=== PATIENT | female | born 1985 | race Hispanic/Latino ===

== ENCOUNTER 2021-01-03 19:12 | Emergency (ER) | payer SELFPAY ==
[2021-01-03] MEDS ORDERED: HYDROCODONE/ACETAMINOPHEN 10/325 MG TAB ONE (19:34)
[2021-01-03] MEDS ORDERED: TETANUS/DIPHTHERIA TOXOID [ADULT] 0.5 ML VIAL IM ONE (19:35)
[2021-01-03] MEDS ORDERED: CEPHALEXIN 500 MG CAPSULE ONE (20:28)
== END 2021-01-03 20:47 | disposition home or self-care (01) ==
LOC: EDH 19:12
DX: S90.211A Contusion of right great toe with damage to nail, initial encounter (principal); S91.201A Unspecified open wound of right great toe with damage to nail, initial encounter; B35.1 Tinea unguium; E11.9 Type 2 diabetes mellitus without complications; W23.0XXA Caught, crushed, jammed, or pinched between moving objects, initial encounter; Y93.89 Activity, other specified; Y92.89 Other specified places as the place of occurrence of the external cause; Y99.8 Other external cause status
CPT/HCPCS: 11730; 73660; 90471; 90714

== ENCOUNTER 2021-02-26 22:45 | Inpatient (IN) | payer OTHER, SELFPAY ==
[~2021-02-26] VITALS: Ht 162.6 cm; Wt 78.5 kg
[2021-02-26] MEDS ORDERED: KETOROLAC 30MG VIAL (30MG/ML) ONE (23:58)
[2021-02-26] MEDS ORDERED: AZITHROMYCIN 250 MG TABLET PO ONE (23:58)
[2021-02-27] VITALS (12 sets, daily range): BP systolic 116–143; BP diastolic 60–95
[2021-02-27] MEDS ORDERED: 0.9%NACL 1000ML 1,000 ML IV ONE (00:18)
[2021-02-27 00:40] LABS: ABG OXYGEN SATURATION 66.6 % (95.0-99.0); HCO3,VENOUS BLOOD GAS 19.6 (21.0-28.0); PCO2,VENOUS BLOOD GAS 35 (32-45); PH,VENOUS BLOOD GAS 7.363 (7.350-7.450)
[2021-02-27 00:48] LABS: APPEARANCE,URINE Clear (CLEAR); BILIRUBIN,URINE Negative (NEGATIVE); COLOR,URINE Yellow (YELLOW); GLUCOSE, URINE (UA) >=1000 mg/dL (NEGATIVE); KETONES,URINE >=80 mg/dL (NEGATIVE); LEUKOCYTE ESTERASE ,URINE Negative (NEGATIVE); NITRATE,URINE Negative (NEGATIVE); OCCULT BLOOD,URINE Nonhemolyzed Trace (NEGATIVE); PH,URINE 5.5 (5.0-8.0); PROTEIN,URINE POS 2+ mg/dL (NEGATIVE); UROBILINOGEN,URINE 0.2 mg/dL (0.2-1.0)
[2021-02-27] MEDS ORDERED: INSULIN HUMULIN R 100 UNIT/ML 3ML ONE ×2 (00:52→02:45)
[2021-02-27 00:53] LABS: BASOPHILS % (AUTO) 0.3 % (0.0-5.0); HEMATOCRIT 39.8 % (36-48); LYMPHOCYTES % (AUTO) 21.9 % (21.0-51.0); MEAN CORPUSCULAR HEMOGLOBIN 30.8 pg (27.0-33.0); MEAN CORPUSCULAR HGB CONC 35.9 g/dL (32.0-36.0); MEAN CORPUSCULAR VOLUME 85.6 fL (79-99); NEUTROPHILS % (AUTO) 63.5 % (40.0-77.0); PLATELET COUNT (AUTO) 99 K/uL (130-400); RED BLOOD CELL COUNT(AUTO) 4.65 MIL/uL (4.00-5.50); RED CELL DISTRIBUTION WIDTH 12.4 % (11.0-15.5); WHITE BLOOD COUNT (AUTO) 3.2 K/uL (4.8-10.8)
[2021-02-27 00:54] LABS: BILIRUBIN,TOTAL 0.6 mg/dL (0.2-1.0); CRP QUANTITATIVE 61.9 mg/L (0.00-9.0); POTASSIUM 4.2 mmol/L (3.5-5.1); TOTAL PROTEIN, SERUM 7.3 g/dL (6.0-8.3)
[2021-02-27 01:04] LABS: BACTERIA,URINE Few /HPF (None Seen); WBC,URINE 0-1 /HPF (0-1)
[2021-02-27 01:16] LABS: B-TYPE NATRIURETIC PEPTIDE 12 pg/mL (0-100)
[2021-02-27] MEDS ORDERED: ONDANSETRON 4MG INJ ONE (02:07)
[2021-02-27] MEDS ORDERED: INSULIN HUMULIN R 100 UNIT/ML 3ML SQ SCH ×2 (02:30→16:30)
[2021-02-27 02:59] LABS: ABG BASE EXCESS -6.8 mmol/L (-2.0-3.0); ABG HCO3 16.8 mmol/L (21.0-28.0); ABG PCO2 29 mmHg (32-45)
[2021-02-27] MEDS ORDERED: DEXTROSE 50%-WATER 50 ML DISP.SYRIN IV PRN (03:00)
[2021-02-27] MEDS ORDERED: POTASSIUM CHLORIDE 10% ELIXIR 20 MEQ/15 ML UDCUP PO PRN (03:00)
[2021-02-27] MEDS ORDERED: LACTATED RINGERS 1000ML 1,000 ML IV SCH (03:00)
[2021-02-27] MEDS ORDERED: KCL 20 MEQ ERTAB PO PRN (03:00)
[2021-02-27] MEDS ORDERED: POTASSIUM CHLORIDE 20MEQ/100ML 100 ML IV PRN ×2 (03:00)
[2021-02-27] MEDS ORDERED: ALBUTEROL 0.083% 2.5 MG/3 ML INH IH PRN (03:00)
[2021-02-27] MEDS ORDERED: GLUCAGON 1MG KIT 1 MG ML IM PRN (03:00)
[2021-02-27] MEDS: INSULIN GLARGINE 100 UNITS/ML 10 ML VIAL SQ SCH (03:00)
[2021-02-27] MEDS ORDERED: DOXYCYCLINE 100MG+NS 250ML 250 ML IV ONE (03:12)
[2021-02-27] MEDS ORDERED: ERGOCALCIFEROL (VITAMIN D2) 50,000 UNIT CAPSULE ONE (03:12)
[2021-02-27] MEDS ORDERED: CEFTRIAXONE 1G VIAL ONE (03:12)
[2021-02-27] MEDS ORDERED: DOXYCYCLINE 100MG+NS 250ML IV SCH (03:15)
[2021-02-27] MEDS ORDERED: ERGOCALCIFEROL (VITAMIN D2) 50,000 UNIT CAPSULE PO ONE (03:15)
[2021-02-27 06:05] LABS: HEMATOCRIT 34.4 % (36-48); MEAN CORPUSCULAR HEMOGLOBIN 29.8 pg (27.0-33.0); MEAN CORPUSCULAR HGB CONC 34.6 g/dL (32.0-36.0); PLATELET COUNT (AUTO) 83 K/uL (130-400); RED CELL DISTRIBUTION WIDTH 12.5 % (11.0-15.5); WHITE BLOOD COUNT (AUTO) 2.6 K/uL (4.8-10.8)
[2021-02-27 06:30] LABS: CREATININE 0.7 mg/dL (0.5-1.5); POTASSIUM 3.7 mmol/L (3.5-5.1)
[2021-02-27] MEDS: INSULIN HUMULIN R 100 UNIT/ML 3ML SQ SCH ×3 (06:48→16:34)
[2021-02-27 06:49] LABS: BAND NEUTROPHILS % (MANUAL) 14 % (0-2); BASOPHILS % (MANUAL) 1 % (0-2); LYMPHOCYTES % (MANUAL) 29 % (22-44); MAN.DIFF COMMENT-IMPRESSION MANUAL DIFFERENTIAL; MONOCYTES % (MANUAL) 5 % (2-9); PLATELET MORPHOLOGY COMMENT DECREASED; SEGMENTED NEUTROPHILS % 51 % (40-70)
[2021-02-27 08:17] LABS: HEMOGLOBIN A1C 12.6 % (4.0-6.0)
[2021-02-27] MEDS: ASCORBIC ACID 500 MG TAB PO SCH (08:31)
[2021-02-27] MEDS: ZINC SULFATE 220 CAPSULE PO SCH (08:32)
[2021-02-27] MEDS: FAMOTIDINE 20MG VIAL IV SCH (08:33)
[2021-02-27] MEDS: ENOXAPARIN SODIUM 40 MG/0.4 ML SYRINGE SQ SCH (09:00)
[2021-02-27] MEDS ORDERED: ACETYLCYSTEINE 600 MG CAPSULE PO SCH (09:00)
[2021-02-27] MEDS: DEXAMETHASONE SOD PHOSPHATE 4 MG/ML 1ML VIAL IV SCH (13:33)
[2021-02-27] MEDS ORDERED: GABAPENTIN 100 MG CAPSULE ONE (13:48)
[2021-02-27] MEDS ORDERED: DOXYCYCLINE HYCLATE 100 MG TABLET PO ONE (13:49)
[2021-02-27] MEDS: GABAPENTIN 100 MG CAPSULE PO SCH (13:59)
[2021-02-27] MEDS: CEFTRIAXONE 1G VIAL IVP SCH (15:36)
[2021-02-27] MEDS: DOXYCYCLINE 100MG+NS 250ML 250 ML IV SCH (15:48)
[2021-02-27] MEDS ORDERED: PHARMACY COMMUNICATION MISC SCH (16:15)
[2021-02-27] MEDS ORDERED: REMDESIVIR (EUA) 520 200 MG in 0.9% NACL 250ML 250 ML IV ONE (17:00)
[2021-02-27] MEDS: REMDESIVIR (EUA) 520 100 MG in 0.9% NACL 250ML 250 ML IV SCH (17:00)
[2021-02-27] MEDS ORDERED: COMPOUND IV REFRIGERATED 1 EACH IVSOLN MISC PRN (17:00)
[2021-02-27] MEDS ORDERED: INSULIN GLARGINE 100 UNITS/ML 10 ML VIAL SQ SCH (21:00)
[2021-02-28] VITALS: BP 131/73
[2021-02-28] MEDS: FAMOTIDINE 20MG VIAL IV SCH ×3 (01:01→21:05)
[2021-02-28] MEDS: GABAPENTIN 100 MG CAPSULE PO SCH ×4 (01:01→21:06)
[2021-02-28] MEDS: INSULIN HUMULIN R 100 UNIT/ML 3ML SQ SCH ×5 (01:34→21:13)
[2021-02-28] MEDS: INSULIN GLARGINE 100 UNITS/ML 10 ML VIAL SQ SCH ×2 (01:35→21:13)
[2021-02-28 04:00] VITALS: BP 129/81
[2021-02-28 04:37] LABS: ALBUMIN 2.6 g/dL (3.5-5.0); BILIRUBIN,DIRECT 0.1 mg/dL (0.0-0.3); BILIRUBIN,TOTAL 0.4 mg/dL (0.2-1.0); CRP QUANTITATIVE 55.8 mg/L (0.00-9.0); TOTAL PROTEIN, SERUM 6.6 g/dL (6.0-8.3)
[2021-02-28] MEDS: REMDESIVIR LABS MISC SCH (04:48)
[2021-02-28] MEDS: CEFTRIAXONE 1G VIAL IVP SCH (05:00)
[2021-02-28] MEDS: DOXYCYCLINE 100MG+NS 250ML 250 ML IV SCH (05:00)
[2021-02-28 05:57] LABS: HEMATOCRIT 39.7 % (36-48); LYMPHOCYTES % (AUTO) 18.2 % (21.0-51.0); MEAN CORPUSCULAR HEMOGLOBIN 29.6 pg (27.0-33.0); MEAN CORPUSCULAR HGB CONC 33.5 g/dL (32.0-36.0); MEAN CORPUSCULAR VOLUME 88.4 fL (79-99); MONOCYTES % (AUTO) 8.8 % (3.0-13.0); PLATELET COUNT (AUTO) 100 K/uL (130-400); RED BLOOD CELL COUNT(AUTO) 4.49 MIL/uL (4.00-5.50); RED CELL DISTRIBUTION WIDTH 12.8 % (11.0-15.5); WHITE BLOOD COUNT (AUTO) 2.9 K/uL (4.8-10.8)
[2021-02-28 06:10] LABS: CREATININE 0.5 mg/dL (0.5-1.5); POTASSIUM 3.8 mmol/L (3.5-5.1)
[2021-02-28 06:48] LABS: ABG BASE EXCESS -6.9 mmol/L (-2.0-3.0); ABG HCO3 16.7 mmol/L (21.0-28.0); ABG OXYGEN SATURATION 96.5 % (95.0-99.0); ABG PCO2 29 mmHg (32-45)
[2021-02-28 08:02] VITALS: BP 172/97
[2021-02-28] MEDS: DEXAMETHASONE SOD PHOSPHATE 4 MG/ML 1ML VIAL IV SCH (09:43)
[2021-02-28] MEDS: ASCORBIC ACID 500 MG TAB PO SCH (09:44)
[2021-02-28] MEDS: ZINC SULFATE 220 CAPSULE PO SCH (09:44)
[2021-02-28] MEDS: ENOXAPARIN SODIUM 40 MG/0.4 ML SYRINGE SQ SCH (09:45)
[2021-02-28 12:01] VITALS: BP 110/59
[2021-02-28 16:00] VITALS: BP 108/62
[2021-02-28] MEDS: REMDESIVIR (EUA) 520 100 MG in 0.9% NACL 250ML 250 ML IV SCH (17:09)
[2021-02-28 20:34] VITALS: BP 100/54
[2021-03-01 00:03] VITALS: BP 88/49
[2021-03-01 04:13] VITALS: BP 106/56
[2021-03-01] MEDS ORDERED: MAGNESIUM 2GM PREMIX 50ML 50 ML IV SCH (05:15)
[2021-03-01 05:16] LABS: BASOPHILS % (AUTO) 0.3 % (0.0-5.0); HEMATOCRIT 34.3 % (36-48); MEAN CORPUSCULAR HEMOGLOBIN 30.3 pg (27.0-33.0); MEAN CORPUSCULAR HGB CONC 35.6 g/dL (32.0-36.0); MEAN CORPUSCULAR VOLUME 85.3 fL (79-99); MONOCYTES % (AUTO) 6.8 % (3.0-13.0); NEUTROPHILS % (AUTO) 61.6 % (40.0-77.0); PLATELET COUNT (AUTO) 128 K/uL (130-400); RED BLOOD CELL COUNT(AUTO) 4.02 MIL/uL (4.00-5.50); RED CELL DISTRIBUTION WIDTH 12.7 % (11.0-15.5); WHITE BLOOD COUNT (AUTO) 3.8 K/uL (4.8-10.8)
[2021-03-01 05:18] LABS: BILIRUBIN,TOTAL 0.4 mg/dL (0.2-1.0); CREATININE 0.8 mg/dL (0.5-1.5)
[2021-03-01 05:37] LABS: ALBUMIN 2.4 g/dL (3.5-5.0); TOTAL PROTEIN, SERUM 6.5 g/dL (6.0-8.3)
[2021-03-01] MEDS: REMDESIVIR LABS MISC SCH (06:00)
[2021-03-01] MEDS: INSULIN HUMULIN R 100 UNIT/ML 3ML SQ SCH ×4 (06:47→21:33)
[2021-03-01 08:07] VITALS: BP 122/67
[2021-03-01] MEDS: ASCORBIC ACID 500 MG TAB PO SCH (09:16)
[2021-03-01] MEDS: ZINC SULFATE 220 CAPSULE PO SCH (09:17)
[2021-03-01] MEDS: FAMOTIDINE 20MG VIAL IV SCH ×2 (09:17→21:28)
[2021-03-01] MEDS: GABAPENTIN 100 MG CAPSULE PO SCH ×3 (09:17→21:30)
[2021-03-01] MEDS: KCL 20 MEQ ERTAB PO SCH (09:18)
[2021-03-01] MEDS: ENOXAPARIN SODIUM 40 MG/0.4 ML SYRINGE SQ SCH (09:18)
[2021-03-01] MEDS: DEXAMETHASONE SOD PHOSPHATE 4 MG/ML 1ML VIAL IV SCH (09:18)
[2021-03-01 12:06] VITALS: BP 111/61
[2021-03-01 16:56] VITALS: BP 130/69
[2021-03-01] MEDS: REMDESIVIR (EUA) 520 100 MG in 0.9% NACL 250ML 250 ML IV SCH (17:15)
[2021-03-01 20:00] VITALS: BP 129/78
[2021-03-01] MEDS: INSULIN GLARGINE 100 UNITS/ML 10 ML VIAL SQ SCH (21:32)
[2021-03-02] VITALS (7 sets, daily range): BP systolic 98–136; BP diastolic 60–76
[2021-03-02 03:46] LABS: CRP QUANTITATIVE 54.7 mg/L (0.00-9.0); MAGNESIUM 2.2 mg/dL (1.80-2.40)
[2021-03-02 05:10] LABS: BASOPHILS % (AUTO) 0.3 % (0.0-5.0); HEMATOCRIT 38.4 % (36-48); LYMPHOCYTES % (AUTO) 18.4 % (21.0-51.0); MEAN CORPUSCULAR HEMOGLOBIN 29.6 pg (27.0-33.0); MEAN CORPUSCULAR HGB CONC 34.6 g/dL (32.0-36.0); MEAN CORPUSCULAR VOLUME 85.5 fL (79-99); MONOCYTES % (AUTO) 10.4 % (3.0-13.0); NEUTROPHILS % (AUTO) 70.6 % (40.0-77.0); PLATELET COUNT (AUTO) 171 K/uL (130-400); RED BLOOD CELL COUNT(AUTO) 4.49 MIL/uL (4.00-5.50); RED CELL DISTRIBUTION WIDTH 12.6 % (11.0-15.5); WHITE BLOOD COUNT (AUTO) 3.5 K/uL (4.8-10.8)
[2021-03-02 05:33] LABS: ALBUMIN 2.4 g/dL (3.5-5.0); BILIRUBIN,TOTAL 0.5 mg/dL (0.2-1.0); CREATININE 0.6 mg/dL (0.5-1.5); TOTAL PROTEIN, SERUM 6.5 g/dL (6.0-8.3)
[2021-03-02] MEDS: REMDESIVIR LABS MISC SCH (06:00)
[2021-03-02] MEDS: INSULIN HUMULIN R 100 UNIT/ML 3ML SQ SCH ×4 (06:45→20:26)
[2021-03-02] MEDS: ZINC SULFATE 220 CAPSULE PO SCH (07:47)
[2021-03-02] MEDS: GABAPENTIN 100 MG CAPSULE PO SCH ×3 (07:47→21:43)
[2021-03-02] MEDS: FAMOTIDINE 20MG VIAL IV SCH (07:47)
[2021-03-02] MEDS: DEXAMETHASONE SOD PHOSPHATE 4 MG/ML 1ML VIAL IV SCH (07:47)
[2021-03-02] MEDS: ASCORBIC ACID 500 MG TAB PO SCH (07:47)
[2021-03-02] MEDS: ENOXAPARIN SODIUM 40 MG/0.4 ML SYRINGE SQ SCH (07:48)
[2021-03-02] MEDS: KCL 20 MEQ ERTAB PO SCH (07:48)
[2021-03-02] MEDS: INSULIN GLARGINE 100 UNITS/ML 10 ML VIAL SQ SCH ×2 (07:58→21:38)
[2021-03-02] MEDS: REMDESIVIR (EUA) 520 100 MG in 0.9% NACL 250ML 250 ML IV SCH (16:48)
[2021-03-03 03:55] VITALS: BP 112/70
[2021-03-03 05:50] LABS: BASOPHILS % (AUTO) 0.2 % (0.0-5.0); HEMATOCRIT 37.9 % (36-48); LYMPHOCYTES % (AUTO) 17.6 % (21.0-51.0); MEAN CORPUSCULAR HEMOGLOBIN 30.4 pg (27.0-33.0); MEAN CORPUSCULAR HGB CONC 35.9 g/dL (32.0-36.0); MEAN CORPUSCULAR VOLUME 84.8 fL (79-99); NEUTROPHILS % (AUTO) 72.7 % (40.0-77.0); PLATELET COUNT (AUTO) 213 K/uL (130-400); RED BLOOD CELL COUNT(AUTO) 4.47 MIL/uL (4.00-5.50); RED CELL DISTRIBUTION WIDTH 12.8 % (11.0-15.5); WHITE BLOOD COUNT (AUTO) 5.5 K/uL (4.8-10.8)
[2021-03-03] MEDS: REMDESIVIR LABS MISC SCH (06:00)
[2021-03-03 06:05] LABS: ALBUMIN 2.4 g/dL (3.5-5.0); BILIRUBIN,TOTAL 0.5 mg/dL (0.2-1.0); CREATININE 0.6 mg/dL (0.5-1.5); CRP QUANTITATIVE 23.9 mg/L (0.00-9.0); POTASSIUM 3.8 mmol/L (3.5-5.1); TOTAL PROTEIN, SERUM 6.4 g/dL (6.0-8.3)
[2021-03-03] MEDS: INSULIN GLARGINE 100 UNITS/ML 10 ML VIAL SQ SCH ×3 (06:40→21:18)
[2021-03-03] MEDS: INSULIN HUMULIN R 100 UNIT/ML 3ML SQ SCH ×7 (06:41→21:18)
[2021-03-03 07:40] VITALS: BP 124/76
[2021-03-03] MEDS: ASCORBIC ACID 500 MG TAB PO SCH (08:05)
[2021-03-03] MEDS: DEXAMETHASONE SOD PHOSPHATE 4 MG/ML 1ML VIAL IV SCH (08:05)
[2021-03-03] MEDS: ZINC SULFATE 220 CAPSULE PO SCH (08:05)
[2021-03-03] MEDS: ENOXAPARIN SODIUM 40 MG/0.4 ML SYRINGE SQ SCH (08:07)
[2021-03-03] MEDS: GABAPENTIN 100 MG CAPSULE PO SCH ×3 (08:10→21:10)
[2021-03-03] MEDS: KCL 20 MEQ ERTAB PO SCH (08:10)
[2021-03-03] MEDS ORDERED: INSULIN LISPRO 100 UNIT/ML 3ML SQ SCH (09:00)
[2021-03-03 11:26] VITALS: BP 94/63
[2021-03-03 16:00] VITALS: BP 99/69
[2021-03-03] MEDS: REMDESIVIR (EUA) 520 100 MG in 0.9% NACL 250ML 250 ML IV SCH (17:11)
[2021-03-03] MEDS ORDERED: DEXTROSE 50%-WATER 50 ML DISP.SYRIN IV PRN (19:45)
[2021-03-03 20:00] VITALS: BP 109/71
[2021-03-03] MEDS ORDERED: INSULIN GLARGINE 100 UNITS/ML 10 ML VIAL SQ SCH (21:00)
[2021-03-04] VITALS: BP 115/73
[2021-03-04 04:00] VITALS: BP 110/73
[2021-03-04 04:39] LABS: ALBUMIN 2.5 g/dL (3.5-5.0); BILIRUBIN,DIRECT 0.1 mg/dL (0.0-0.3); BILIRUBIN,TOTAL 0.5 mg/dL (0.2-1.0); TOTAL PROTEIN, SERUM 6.4 g/dL (6.0-8.3)
[2021-03-04 05:10] LABS: CREATININE 0.5 mg/dL (0.5-1.5); CRP QUANTITATIVE 14.7 mg/L (0.00-9.0); POTASSIUM 3.5 mmol/L (3.5-5.1)
[2021-03-04 05:13] LABS: BASOPHILS % (AUTO) 0.3 % (0.0-5.0); EOSINOPHILS % (AUTO) 0.2 % (0.0-8.0); MEAN CORPUSCULAR HEMOGLOBIN 29.4 pg (27.0-33.0); MEAN CORPUSCULAR HGB CONC 34.5 g/dL (32.0-36.0); MEAN CORPUSCULAR VOLUME 85.1 fL (79-99); MONOCYTES % (AUTO) 9.4 % (3.0-13.0); PLATELET COUNT (AUTO) 263 K/uL (130-400); RED CELL DISTRIBUTION WIDTH 12.5 % (11.0-15.5); WHITE BLOOD COUNT (AUTO) 6.4 K/uL (4.8-10.8)
[2021-03-04] MEDS: REMDESIVIR LABS MISC SCH (06:00)
[2021-03-04] MEDS: INSULIN HUMULIN R 100 UNIT/ML 3ML SQ SCH ×4 (06:35→11:26)
[2021-03-04 07:45] VITALS: BP 108/59
[2021-03-04] MEDS: ASCORBIC ACID 500 MG TAB PO SCH (08:24)
[2021-03-04] MEDS: ZINC SULFATE 220 CAPSULE PO SCH (08:24)
[2021-03-04] MEDS: DEXAMETHASONE SOD PHOSPHATE 4 MG/ML 1ML VIAL IV SCH (08:24)
[2021-03-04] MEDS: GABAPENTIN 100 MG CAPSULE PO SCH (08:24)
[2021-03-04] MEDS: KCL 20 MEQ ERTAB PO SCH (08:25)
[2021-03-04] MEDS: ENOXAPARIN SODIUM 40 MG/0.4 ML SYRINGE SQ SCH (08:25)
[2021-03-04] MEDS: INSULIN GLARGINE 100 UNITS/ML 10 ML VIAL SQ SCH (08:52)
[2021-03-04] MEDS ORDERED: GLYB5TAB8 PO (10:04)
[2021-03-04] MEDS ORDERED: PIOG30TA10 PO (10:04)
[2021-03-04] MEDS ORDERED: APIX2.5T PO (10:04)
[2021-03-04] MEDS ORDERED: METF-446 PO (10:04)
[2021-03-04] MEDS ORDERED: DEXA6TAB PO (10:04)
[2021-03-04] MEDS ORDERED: PANT40TA55 PO (10:04)
[2021-03-04 11:10] VITALS: BP 109/67
== END 2021-03-04 13:50 | disposition home or self-care (01) | DRG 177 ==
LOC: EDH 22:45 → EDHIP 22:46 → 2BH 02-27 04:18 → 2AH 02-28 12:52 → 2BH 02-28 13:03 → 2AH 02-28 13:08
PROVIDERS: ADMIT Family Medicine; ATTEND Family Medicine
PROC: XW033E5 Introduction of Remdesivir Anti-infective into Peripheral Vein, Percutaneous Approach, New Technology Group 5 (ICD-10-PCS; principal; 2021-02-27)
PROC: XW13325 Transfusion of Convalescent Plasma (Nonautologous) into Peripheral Vein, Percutaneous Approach, New Technology Group 5 (ICD-10-PCS; 2021-02-28)
DX: U07.1 COVID-19 (principal); J12.82 Pneumonia due to coronavirus disease 2019; E87.1 Hypo-osmolality and hyponatremia; E11.65 Type 2 diabetes mellitus with hyperglycemia; D69.6 Thrombocytopenia, unspecified; D72.810 Lymphocytopenia; E66.9 Obesity, unspecified; T38.0X5A Adverse effect of glucocorticoids and synthetic analogues, initial encounter; Y92.89 Other specified places as the place of occurrence of the external cause; Z79.84 Long term (current) use of oral hypoglycemic drugs; Z83.3 Family history of diabetes mellitus; Z91.19 Patient's noncompliance with other medical treatment and regimen; Z68.29 Body mass index [BMI] 29.0-29.9, adult
CPT/HCPCS: 36415; 36430; 36600; 71045; 80048; 80053; 80076; 81001; 81025; 82009; 82435; 82728; 82803; 82947; 82948; 83036; 83605; 83615; 83735; 83880; 84132; 84145; 84295; 84484; 85025; 85027; 85378; 86140; 86850; 86900; 86901; 86927; 87426; 87804; 93005; 94664; 94760; G0378; J0696; J1100; J1650; J1815; J1885; J2405; J3475; J3490; J7030; J7050